=== PATIENT | female | born 1995 | race Caucasian/White ===

== ENCOUNTER 2018-10-30 22:52 | Inpatient (IN) | payer MEDICAID, OTHER ==
[~2018-10-30] VITALS: Ht 167.6 cm; Wt 82.5 kg
[2018-10-30 23:02] VITALS: Ht 167.6 cm; Wt 82.5 kg
[2018-10-30] MEDS ORDERED: FERR256T PO (23:04)
[2018-10-30] MEDS ORDERED: PREN-6 PO (23:04)
[2018-10-30] MEDS ORDERED: LACTATED RINGER'S 1,000 ML IV PRN (23:46)
[2018-10-31] MEDS ORDERED: OXYTOCIN 30 UNITS/LR 500 ML IV SCH ×2
[2018-10-31] MEDS ORDERED: BUTORPHANOL 2 MG INJ IV PRN
[2018-10-31] MEDS ORDERED: AMPICILLIN 2 GM/NS (PMX) 100 ML IV ONE
[2018-10-31] MEDS ORDERED: LIDOCAINE 1% (MPF) 30 ML INJ INJ PRN
[2018-10-31] MEDS ORDERED: METHYLERGONOVINE 0.2 MG INJ IM PRN
[2018-10-31] MEDS ORDERED: MINERAL OIL LIGHT 10 ML VIAL TOP PRN
[2018-10-31] MEDS: LACTATED RINGER'S 1,000 ML IV SCH ×4 (00:57→23:46)
[2018-10-31] MEDS: OXYTOCIN 30 UNITS/LR 500 ML IV SCH ×2 (01:56→22:24)
--- NOTE | 2018-10-31 02:35 | TRIAGE ---
OB Triage Datetime Report Generated by CPN: 10/31/2018 02:35 Datetime: 10/31/2018 02:30 Stage of : Labor Labor Evaluation Frequency: IRREG Monitor Mode: External Duration (sec)2399: 50-70 Quality: Mild Pattern: Normal: <= 5 Contractions in 10 Minutes Resting Tone [place]: Relaxed Heart Rate FHR Baseline Rate: 135 Monitor Mode: External US Variability: Moderate 6-25 bpm Accelerations: 15X15 Decelerations: None Category: Category I Datetime: 10/31/2018 02:00 Stage of : Labor Labor Evaluation Frequency: 2-7 Monitor Mode: External Duration (sec)2399: 60-120 Quality: Mild Pattern: Normal: <= 5 Contractions in 10 Minutes Resting Tone [place]: Relaxed Heart Rate FHR Baseline Rate: 135 Monitor Mode: External US Variability: Moderate 6-25 bpm Accelerations: 15X15 Decelerations: Variable Category: Category II Datetime: 10/31/2018 01:00 Stage of : Labor Labor Evaluation Frequency: 2-7 Monitor Mode: External Duration (sec)2399: 60-120 Quality: Mild Pattern: Normal: <= 5 Contractions in 10 Minutes Resting Tone [place]: Relaxed Heart Rate FHR Baseline Rate: 140 Monitor Mode: External US Variability: Moderate 6-25 bpm Accelerations: 15X15 Decelerations: Variable (Annotations: X1) Category: Category II Datetime: 10/31/2018 00:00 Stage of : OB Triage Temperature Route: Oral Labor Evaluation Frequency: 2-13 Monitor Mode: External Duration (sec)2399: 60-120 Quality: Mild Pattern: Normal: <= 5 Contractions in 10 Minutes Resting Tone [place]: Relaxed Heart Rate FHR Baseline Rate: 140 Monitor Mode: External US Variability: Moderate 6-25 bpm Accelerations: 15X15 Decelerations: Early; Variable Category: Category II Pain Assessment Pain Scale: 1 Pain Presence: Intermittent Pain Type: Cramping Pain Location: Abdomen Pain Goal: 5 Pain Relief Measures: Comfort Measures Datetime: 10/30/2018 23:40 Stage of : OB Triage Datetime: 10/30/2018 23:33 Vaginal Exam Dilatation (cms): 1.5 Effacement (%): 80 Station: -3 Exam By: BARRETT Vaginal Bleeding: None Cervix, Consistency: Soft Cervix, Position: Posterior Datetime: 10/30/2018 23:31 Membrane Status: Intact Pool: Negative Nitrazine: Negative Datetime: 10/30/2018 23:15 Assessment Type: Triage Maternal Assessment Level of Consciousness: Fully Conscious DTR's/Clonus: DTRs 2+; No Clonus Headache: Denies Blurred Vision: No Respiratory Effort: Unlabored; Regular Rhythm; Equal Expansion Breath Sounds, Left: Clear and Equal Breath Sounds, Right: Clear and Equal Nausea/Vomiting: Denies RUQ Epigastric Pain: Denies Lower Extremities Edema: None Facial Edema: None Fall Risk Assessment History of Falling: (0) No Secondary Diagnosis: (0) No Ambulatory Aid: (0) Bedrest/Nurse Assist IV Therapy: (0) No Gait: (0) Normal/Bedrest/Immobile Mental Status: (0) Oriented to Own Ability Datetime: 10/30/2018 23:07 Time of Arrival: 10/30/2018 22:55 EGA: 40.2 Arrived By: Wheelchair Arrived From: Home Chief Complaint: LEAKING SINCE 1200 (NOT SURE) Movement: Present Contractions: Denies/Absent Rupture of Membranes: Unsure Vaginal Discharge: Present Time Provider Notified: 10/30/2018 23:40 Provider Notified: TEO Initial Plan: SHERRIE, ANISA CHRISTENSEN FOR ORDERS
--- NOTE | 2018-10-31 03:59 | PREAC ---
Date/Time of Note Date/Time of Note DATE: 10/31/18 TIME: 03:58 Anesthesia Eval and Record Evaluation Time Pre-Procedure Interview DATE: 10/31/18 TIME: 03:58 Age 23 Sex female NPO: 8 hrs Preoperative diagnosis Planned procedure labor epidural Past Medical History Past Medical History: Includes Cardio: Arrythmia (vtach s/p ablation) Surgery & Anesthesia Issues No known issue Meds Anticoagulation: No Beta Brittny within 24 hr: No Reason Beta Brittny not given: Pt. not on B-Brittny Reported Medications Ferrous Gluconate (Iron) 256 Mg Tablet, 256 MG PO DAILY, TAB 10/30/18 Vits #93-Iron Fum-FA ( Formula) 1 Each Tablet, 1 TAB PO DAILY, TAB 10/30/18 Current Medications Lactated Ringer's 1,000 ml @ 125 mls/hr Q8H IV Last administered on 10/31/18at 00:57; Admin Dose 125 MLS/HR; Start 10/30/18 at 23:46 Ampicillin 50 ml @ 100 mls/hr Q4H IV ; Start 10/31/18 at 04:00 Butorphanol Tartrate (Stadol) 2 mg Q2H PRN IV .PAIN SCALE 6-10; Start 10/31/18 at 00:00 Lidocaine (Xylocaine 1% (Mpf)) 30 ml ONCE PRN INJ .EPISIOTOMY; Start 10/31/18 at 00:00 Oxytocin/Lactated Ringer's 500 ml @ 500 mls/hr ONCE POST IV Last administered on 10/31/18at 01:56; Admin Dose 500 MLS/HR; Start 10/31/18 at 00:00 Oxytocin/Lactated Ringer's 500 ml @ 125 mls/hr POST IV ; Start 10/31/18 at 00:00 Lactated Ringer's 1,000 ml @ 2,000 mls/hr Q30M PRN IV .ANESTHESIA Last administered on 10/31/18at 03:46; Admin Dose 2,000 MLS/HR; Start 10/30/18 at 23:46 Oxytocin/Lactated Ringer's 500 ml @ 0 mls/hr ONCE PRN IV .VAGINAL BLEEDING; Start 10/31/18 at 00:00 Methylergonovine Maleate (Methergine) 0.2 mg ONCE PRN IM .VAGINAL BLEEDING; Start 10/31/18 at 00:00 Carboprost Tromethamine (Hemabate) 250 mcg ONCE PRN IM .VAGINAL BLEEDING; Start 10/31/18 at 00:00 Misoprostol (Cytotec) 1,000 mcg ONCE PRN OR .VAGINAL BLEEDING; Start 10/31/18 at 00:00 Oxytocin/Lactated Ringer's 500 ml @ 0 mls/hr FOR AUGMENTATION IV ; Start 10/31/18 at 00:00 Mineral Oil (Muri-Lube) 20 ml ONCE PRN TOP FOR DELIVERY; Start 10/31/18 at 00:00; Stop 10/31/18 at 23:45 Meds reviewed: Yes Allergies Coded Allergies: No Known Allergy (Unverified , 10/30/18) Allergies Reviewed: No Labs/Studies Labs Reviewed: Reviewed by anesthesiologist Result Diagram: 10/31/18 0052 Laboratory Tests 10/31/18 00:52 Blood Bank Test 10/31/18 00:52 Blood Type A NEGATIVE Rh Immune Globulin Candidate NO test: N/A Pre-procedure Exam Airway: Adequate mouth opening, Adequate thyromental dist Mallampati: Mallampati II Teeth: Normal Lung: Normal Heart: Normal ASA Physical Status ASA physical status: 2 Emergency: None Planned Anesthetic Neuraxial: Epidural Planned Pain Management Epidural, Parenteral pain med Pre-operative Attestations Prior to commencing anesthesia and surgery, the patient was re-evaluated, there was verification of: *The patient's identity *The results of appropriate recent lab work and preoperative vital signs *The above evaluation not changing prior to induction *Anesthetic plan, risk benefits, alternative and complications discussed with patient/family; questions answered; patient/family understands, accepts and wishes to proceed. KINJAL PHAM MD Oct 31, 2018 03:59
[2018-10-31] MEDS ORDERED: ONDANSETRON 4 MG INJ IV PRN ×2 (04:00→23:30)
[2018-10-31] MEDS ORDERED: NALOXONE (0.4 MG/ML) INJ IV PRN (04:00)
[2018-10-31] MEDS ORDERED: DIPHENHYDRAMINE 50 MG INJ IV PRN ×2 (04:00→23:30)
[2018-10-31] MEDS: AMPICILLIN 1 GM/NS (PMX) 50 ML IV SCH ×5 (04:01→19:23)
[2018-10-31] MEDS ORDERED: FENTAnyl 2MCG/ML-ROPIV 0.2% 100 ML ONE (04:03)
--- NOTE | 2018-10-31 04:48 | PAC ---
Date/Time of Note Date/Time of Note DATE: 10/31/18 TIME: 04:47 Post-Anesthesia Notes Post-Anesthesia Note Activity: WNL Respiratory function: WNL Cardiovascular function: WNL Mental status: Baseline Pain reasonably controlled: Yes Hydration appropriate: Yes Nausea/Vomiting absent: Yes Comments BP: 120/74 HR: 78 RR: 15 T: 98 SaO2: 100% KINJAL PHAM MD Oct 31, 2018 04:48
[2018-10-31] MEDS: FENTAnyl 2MCG/ML-ROPIV 0.2% 100 ML BAG EPI SCH ×2 (12:21→18:42)
[2018-10-31] MEDS: LACTATED RINGER'S 1,000 ML IV* SCH (23:01)
--- NOTE | 2018-10-31 23:04 | HP ---
Date/Time of Note Date/Time of Note DATE: 10/31/18 TIME: 23:03 OB - History Hx of Present Free Text/Dictation 23 YO G1 with EDC 10/28/2018 with IUP at 40.3 weeks admitted for early labor Care: Good Care Ultrasounds: Normal mid trimester US Obstetrical Complications: None Medical Complications: None Past Family/Social History * Past Medical, Surgical, Family and Obstetric Histories reviewed from chart. OB Admission Exam Physical Exam HEENT: WNL Heart: Rhythm Normal Lungs: Clear, Equal Abdomen: WNL Extremities: Normal Reflexes: Normal Cervical Dilatation: 10cm Effacement: 100% Station: +3 Last 72 hours Lab Results CBC & BMP 10/31/18 00:52 OB Assessment/Plan Reason for admission: active labor Plan: Expectant Management SUPA BRUCE MD Oct 31, 2018 23:04
--- NOTE | 2018-10-31 23:07 | LDN ---
Date/Time of Note Date/Time of Note DATE: 10/31/18 TIME: 23:05 Delivery Summary 23 YO G1 with EDC 10/28/2018 with IUP at 40.3 weeks s/p of viable male infant. After delivery of the head the rest of the body delivered easily. I did not apply excessive traction. Placenta delivered spontaneously and intact. evaluation of the placenta confirmed intact placenta. Uterus was firm. APGARS 7 and 9. EBL 300 ml. 2nd degree vaginal and perineal laceration was repaired in normal fashion Placenta Delivered: Spontaneously Meconium: none Episiotomy: No Perineal laceration: 2 Anesthesia type: Epidural Estimated blood loss: 300 Sponge & Needle done & correct: Yes All needle counts correct: Yes Any foreign bodies felt in the: No Infant Delivery Information Sex Sex: male Apgars 1 Minute: 7 5 Minute: 9 Suctioning Nose & mouth suctioned at jerardo: No Delee suction performed: No Umbilical Cord Umbilical cord with: 3 Vessels Cord presentations: no nuchal cord Nuchal cord present X: 0 Cord Blood was obtained: Yes Mother & Baby Disposition Disposition Mom & Baby to Maternity; Good: Yes SUPA BRUCE MD Oct 31, 2018 23:07
[2018-10-31] MEDS ORDERED: ONDANSETRON 4 MG TAB PO PRN (23:30)
[2018-10-31] MEDS ORDERED: NA PHOSPHATE/BIPHOS 133 ML ENEMA PR PRN (23:30)
[2018-10-31] MEDS ORDERED: WITCH HAZEL/GLYCERIN PAD PR PRN (23:30)
[2018-10-31] MEDS ORDERED: DIPHENHYDRAMINE 25 MG CAP PO PRN (23:30)
[2018-10-31] MEDS ORDERED: OXYTOCIN 30 UNITS/LR 500 ML IV PRN ×2 (23:30)
[2018-10-31] MEDS ORDERED: MAGNESIUM HYDROXIDE 30ML CUP PO PRN (23:30)
[2018-10-31] MEDS ORDERED: DIBUCAINE 1% 30 GM OINT TOP PRN (23:30)
[2018-10-31] MEDS ORDERED: SENNA/DOCUSATE NA (8.6MG/50MG) TAB PO PRN (23:30)
[2018-10-31] MEDS ORDERED: MISOPROSTOL 200 MCG TAB PR PRN ×2 (23:30)
[2018-10-31] MEDS ORDERED: BENZOCAINE 20% 56 ML SPRAY TOP PRN (23:30)
[2018-10-31] MEDS ORDERED: CARBOPROST 250 MCG INJ IM PRN ×2 (23:30)
[2018-10-31] MEDS ORDERED: HYDROCODONE/APAP (5/325) TAB PO PRN (23:30)
[2018-11-01 00:30] VITALS: BP 109/59; PULSE 81; RESP 20
[2018-11-01] MEDS: HYDROCODONE/APAP (5/325) TAB PO PRN ×4 (03:36→22:24)
[2018-11-01 04:00] VITALS: BP 122/58; PULSE 103; RESP 20
[2018-11-01] MEDS: IBUPROFEN 600 MG TAB PO SCH ×4 (05:56→17:38)
[2018-11-01] MEDS: LACTATED RINGER'S 1,000 ML IV* SCH (07:21)
[2018-11-01] MEDS: LACTATED RINGER'S 1,000 ML IV SCH (07:46)
[2018-11-01 08:00] VITALS: BP 93/50; PULSE 70; RESP 18
--- NOTE | 2018-11-01 08:52 | DS ---
Date/Time of Note Date/Time of Note DATE: 11/01/18 TIME: 08:51 Obstetrical Discharge Record Final Diagnosis Final Diagnosis: Term delivered Vaginal Delivery Obstetrical Delivery: Spontaneous Complications Augmentation: Yes Induction: Yes Rupture of Membranes: No Condition on Discharge Physical Assessment Voiding: Yes Bowel Movement: Yes Breast: Soft, non-tender, Filling Fundus: Firm Abdomen and Incision: soft, not tender Calf Tenderness: No Patient Condition: Good SUPA BRUCE MD Nov 01, 2018 08:52
[2018-11-01] MEDS: SENNA/DOCUSATE NA (8.6MG/50MG) TAB PO SCH ×2 (08:53→20:43)
[2018-11-01] MEDS: LANOLIN HPA 1 PKT TOP PRN ×3 (11:23→22:24)
[2018-11-01 15:31] VITALS: BP 97/49; PULSE 74; RESP 18
[2018-11-02] MEDS: IBUPROFEN 600 MG TAB PO SCH ×3 (00:11→13:10)
[2018-11-02 04:00] VITALS: BP 103/55; PULSE 69; RESP 16
[2018-11-02 08:00] VITALS: BP 103/63; PULSE 69; RESP 18
[2018-11-02] MEDS ORDERED: MEASLES,MUMPS,RUBELLA VACCINE INJ SC* ONE (09:00)
[2018-11-02] MEDS ORDERED: VARICELLA VACCINE LIVE/PF 1,350 UNIT/0.5 ML ML SC* ONE (09:00)
[2018-11-02] MEDS ORDERED: DIPHTH/TET/ACEL PERTUSS (ADULT) 0.5 ML VIAL IM* ONE (09:00)
[2018-11-02] MEDS: SENNA/DOCUSATE NA (8.6MG/50MG) TAB PO SCH (09:18)
[2018-11-02] MEDS: HYDROCODONE/APAP (5/325) TAB PO PRN (09:18)
--- NOTE | 2018-11-03 17:34 | DELSUM ---
Delivery Summary A-C Datetime Report Generated by CPN: 11/03/2018 17:34 DELIVERY PERSONNEL Scooping Machine Tender: Dykes, Nancy MATERNAL INFORMATION Delivery Anesthesia: Epidural Delivery QBL (ml): 300 Placenta Cultured: No Maternal Complications: None LABOR SUMMARY EDC: 10/28/2018 00:00 No. Babies in Womb: 1 Attempted: No Labor Anesthesia: Epidural LABOR INFORMATION Reason for Induction: Not Applicable Onset of Labor: 10/30/2018 23:00 Complete Dilatation: 10/31/2018 21:33 Oxytocin: Augmentation Group B Beta Strep: Positive Antibiotics # of Doses: 5 Antibiotics Time of Last Dose: 10/31/2018 19:30 Steroids Given: None Reason Steroids Not Administered: Not Applicable MEMBRANES Membranes Rupture Method: Artificial Rupture of Membranes: 10/31/2018 14:44 Length of Rupture (hr): 7.17 Amniotic Fluid Color: Clear Amniotic Fluid Amount: Moderate Amniotic Fluid Odor: None STAGES OF LABOR Stage 1 hr: 22 Stage 1 min: 33 Stage 2 hr: 0 Stage 2 min: 21 Stage 3 hr: 0 Stage 3 min: 6 Total Time in Labor hr: 23 Total Time in Labor min: 0 VAGINAL DELIVERY Episiotomy: None Laceration Extension: Second Degree Laceration Type: Perineal Laceration Repair: Yes Initial Vag Sponge Count: 10 Final Vag Sponge Count: 10 Initial Vag Sharps Count: 1 Final Vag Sharps Count: 3 Sponge Count Correct: Yes Sharps Count Correct: Yes BABY A INFORMATION Delivery Date/Time: 10/31/2018 21:54 Method of Delivery: Vaginal Born in Route : No : N/A Forceps: N/A Vacuum Extraction: N/A Shoulder Dystocia : N/A SHOULDER DYSTOCIA BABY A Infant Delivery Date/Time: 10/31/2018 21:54 PRESENTATION/POSITION BABY A Presentation: Cephalic Cephalic Presentation: Vertex Vertex Position: Right Occipital Posterior Breech Presentation: N/A PLACENTA INFORMATION BABY A Placenta Delivery Time : 10/31/2018 22:00 Placenta Method of Delivery: Spontaneous Placenta Status: Delivered SCORES BABY A Heart Rate 1 min: >100 bpm Resp Effort 1 min: Good Cry Reflex Irritability 1 min: Cough/Sneeze/Pulls Away Muscle Tone 1 min: Active Motion Color 1 min: Blue/Pale Resuscitation Effort 1 min: Tactile Stimulation SCORE 1 MIN: 8 Heart Rate 5 min: >100 bpm Resp Effort 5 min: Good Cry Reflex Irritability 5 min: Cough/Sneeze/Pulls Away Muscle Tone 5 min: Active Motion Color 5 min: Body [place], Extremit Blue Resuscitation Effort 5 min: Tactile Stimulation SCORE 5 MIN: 9 INFANT INFORMATION BABY A Gestational Age at Delivery: 40.3 Gestational Status: Full Term- 39- 40.6 Weeks Infant Outcome : Liveborn Infant Condition : Stable Infant Sex: Male IDENTIFICATION/MEDS BABY A ID Band Number: [id number] ID Band Location: Right Leg; Left Arm Sensor Number: [id number] Sensor Location : Cord Clamp Vitamin K Given : Not Given Erythromycin Given: Not Given WEIGHT/LENGTH BABY A Infant Birthweight (gm): 3890 Infant Weight (lb): 8 Infant Weight (oz): 9 Length (in): 21.00 Infant Length (cm): 53.34 CORD INFORMATION BABY A No. Cord Vessels: 3 Nuchal Cord : N/A Cord Blood Taken: Yes Infant Suction: Mouth; Nose ASSESSMENT BABY A Infant Complications: None Physical Findings at Delivery: Within Normal Limits Respirations: Appears Normal Casino Floor Runner/ALS Called : Yes Transferred To: Remains with Mother
== END 2018-11-02 17:00 | disposition home or self-care (01) | DRG 806 ==
LOC: OBT 22:52 → L-D 22:59 → OBT 23:40 → PP1 11-01 00:26
PROVIDERS: ADMIT Specialist; ATTEND Specialist
PROC: 10E0XZZ Delivery of Products of Conception, External Approach (ICD-10-PCS; principal; 2018-10-31)
PROC: 0KQM0ZZ Repair Perineum Muscle, Open Approach (ICD-10-PCS; 2018-10-31)
PROC: 0UQGXZZ Repair Vagina, External Approach (ICD-10-PCS; 2018-10-31)
DX: O48.0 Post-term pregnancy (principal); O71.4 Obstetric high vaginal laceration alone; Z37.0 Single live birth; Z3A.40 40 weeks gestation of pregnancy
CPT/HCPCS: 62322; 76815; 80307; 81001; 84112; 85025; 85610; 85730; 86850; 86870; 86885; 86900; 86901; 87340; 90716; 99464; G0463; J0290; J0595; J2590; J3010; J7120